=== PATIENT | male | born 1955 | race Caucasian/White ===

== ENCOUNTER 2018-07-24 08:57 | Day surgery (SDC) | payer MEDICARE ==
--- NOTE | 2018-07-24 08:53 | HP ---
DATE OF SURGERY: 07/24/2018 HISTORY OF PRESENT ILLNESS: The patient is a 63 year-old had port placed by Dr. Riley in the past. He had some multiple myeloma. PAST MEDICAL HISTORY: As mentioned above had multiple myeloma in the past. PAST SURGICAL HISTORY: Stephan in his right leg and hip. Broken left hip in the past. He had a port placed in the past. Endoscopy in the past. MEDICATIONS: Calcium. Pravachol for hypercholesterolemia. Aspirin, morphine sulfate, MS Contin, B12. ALLERGIES: NKDA. FAMILY HISTORY: Negative in regards to this problem. SOCIAL HISTORY: No smoking or alcohol abuse. REVIEW OF SYSTEMS: Twelve systems reviewed. No chest pain or palpitations other systems negative or noncontributory as above and per preadmission questionnaire. PHYSICAL EXAMINATION: GENERAL: No acute distress. HEENT: Sclerae nonicteric. NECK: No JVD. CHEST: Equal excursion, nonlabored breathing. Port site okay. CVS: Regular rate and rhythm. ABDOMEN: Soft. No peritoneal signs. EXTREMITIES: No significant edema. NEURO: Alert, oriented, moving extremities symmetrically. No gross motor deficits noted. IMPRESSION: He has some aches and pains. He no longer needs to port. He desires removal. Dr. Cueva has given the okay to have the port taken out. We will proceed with removal of Port-A-Cath as an outpatient. He was explained the risks and benefits but not limited to bleeding or infection, risk of hematoma or seroma formation, wound dehiscence possibly requiring packing. He understands remote possibility that the catheter could be scarred in and unable to be safely removed and may need to tie it off and just remove the port itself. He also understands his aches and pains may not change with just removing the port. He could have new aches and pains from the procedure. He understands as well as general risk of anesthesia, deep venous thrombosis, pulmonary embolism or pneumonia but not limited to, will proceed with Port-A-Cath removal as an outpatient.
[~2018-07-24 08:57] MED LIST: Lactated Ringers 1,000 ML IV ONE; XYLOCAINE 1% HCL 20 ML MDV ONE
[2018-07-24] MEDS ORDERED: DIPRIVAN 200 MG/20 ML IV ONE (08:58)
[2018-07-24] MEDS ORDERED: SUBLIMAZE 100 MCG/2 ML IV ONE (08:58)
[2018-07-24] MEDS ORDERED: Versed 2 MG/2 ML Injection IV ONE (08:58)
[2018-07-24] MEDS ORDERED: Lactated Ringers 1,000 ML IV SCH (10:30)
[2018-07-24] MEDS ORDERED: KEFZOL 1 GM ONE (11:36)
[2018-07-24 13:26] VITALS: BP 162/94; PULSE 73; O2SAT 96
--- NOTE | 2018-07-25 07:41 | OP ---
SURGERY DATE/TIME: 07/24/2018 1204 PREOPERATIVE DIAGNOSIS: Prior history of multiple myeloma no longer using his port with desire for removal. POSTOPERATIVE DIAGNOSIS: Prior history of multiple myeloma no longer using his port with desire for removal. PROCEDURE: Removal of tunnel Port-A-Cath. SURGEON: Dr. Jakub Lopez. ANESTHESIA: MAC. 1% lidocaine local. ESTIMATED BLOOD LOSS: Minimal. INDICATIONS: As noted above. Risks and benefits explained in detail and not limited to and consent obtained. DESCRIPTION OF PROCEDURE AND FINDINGS: The patient is taken to the operating room. MAC anesthesia introduced. The area head been prepped and draped in usual sterile fashion. After official time out and no disagreement with planned procedure, 1% lidocaine local infiltrated in field pattern around the port site. Dissection carried through the old scar down to the old port that I think had been placed by Dr. Riley years ago if I recall. Two Prolene sutures were carefully identified and removed and passed off. The port itself and the catheter were mobilized upwards. The catheter was in there a little bit snug but gently pulling the catheter it is gradually freed, able to be removed intact and passed off with the natural taper of the catheter end noted past the markings confirming the end of the catheter itself. The port and catheter had been removed intact and passed off. The tunnel track closed with 3-0 Vicryl. Fibrous pocket closed with 3-0 Vicryl. Subcu closed with 3-0 Vicryl. Skin closed with 4-0 Vicryl. There had been a little bit of raw ooze but it appeared to have good hemostasis at this point. 4-0 Vicryl used to close the skin in running subcuticular fashion. Steri-Strips and sterile dressing applied. The patient tolerated the procedure well. He was transported to the recovery room in stable condition. Findings discussed with the family out in the waiting area later as they were not immediately available and I spoke with them earlier.
== END 2018-07-24 13:31 | disposition home or self-care (01) ==
LOC: SDC 08:57
PROVIDERS: ATTEND Surgery
DX: Z45.2 Encounter for adjustment and management of vascular access device (principal); Z85.79 Personal history of other malignant neoplasms of lymphoid, hematopoietic and related tissues; Z79.899 Other long term (current) drug therapy; E78.00 Pure hypercholesterolemia, unspecified
CPT/HCPCS: J0690; J2250; J2704; J3010